=== PATIENT | male | born 1965 | race Caucasian/White ===

== ENCOUNTER 2017-12-31 04:46 | Inpatient (IN) | payer SELFPAY ==
[~2017-12-31] VITALS: Ht 175.3 cm; Wt 124.7 kg
[2017-12-31] VITALS (7 sets, daily range): BP systolic 143–211; BP diastolic 88–106
--- NOTE | ~2017-12-31 | PROC ---
[facility] [address] [place] [address] PROCEDURE REPORT Name: ILENE HEADLEY Room: [address] IN M.R.#: [id number] Admission: 12/31/17 Attend Phys: Joceline Crocker MD Discharge: 01/03/18 Date of : 65 Report #: [id number] THIS REPORT FOR: //name// For GI report, please see the Provation report in Perceptive 7 content. By: 0858Medical Records Staff RILEY /FABIEN
[2017-12-31] MEDS ORDERED: SYNTHROID100 MC1 PO (05:00)
[2017-12-31 05:21] LABS: URINE BILIRUBIN NEGATIVE (Negative); URINE BLOOD NEGATIVE (Negative); URINE CLARITY SL CLOUDY; URINE COLOR YELLOW; URINE GLUCOSE-RANDOM NEGATIVE (Negative); URINE KETONES NEGATIVE (Negative); URINE LEUKOCYTES-REFLEX NEGATIVE (Negative); URINE NITRITE-REFLEX NEGATIVE (Negative); URINE PROTEIN NEGATIVE (Negative); URINE UROBILINOGEN 0.2 E.U./dl (0.2-1.0)
[2017-12-31 05:22] LABS: ABSOLUTE BASOPHILS 0.1 thou/uL (0.0-0.2); ABSOLUTE LYMPHOCYTES 1.2 thou/uL (0.8-5.3); ABSOLUTE MONOCYTES 0.6 thou/uL (0.0-1.2); ABSOLUTE NEUTROPHILS 6.5 thou/uL (1.6-8.1); BASOPHILS 0.7 %; EOSINOPHILS 0.5 %; HEMATOCRIT 45.2 % (42.0-52.0); HEMOGLOBIN 15.2 gm/dL (14.0-18.0); LYMPHOCYTES 14.7 %; MCH 28.9 pg (26.0-34.0); MCHC 33.7 g/dL (28.0-37.0); MCV 85.8 fL (80.0-100.0); MONOCYTES 7.3 %; MPV 6.9 fl. (7.2-11.1); NUCLEATED RBCS 0 /100WBC; PLATELET COUNT* 321 thou/uL (150-400); POLYS 76.8 %; RBC 5.27 mil/uL (4.50-6.00); WBC 8.4 thou/uL (4.0-11.0)
[2017-12-31 05:26] LABS: AMORPHOUS PHOSPHATES Moderate /LPF (None Seen); BACTERIA-REFLEX 1-9 Few /HPF (None Seen); CASTS None Seen /LPF (None Seen); SQUAMOUS 0-3 Few /LPF (0-3); URINE RBC 0-2 Rare /HPF (0-2); URINE WBC-REFLEX 0-5 Rare /HPF (0-5)
[2017-12-31 05:44] LABS: CALCIUM 9.5 mg/dL (8.5-10.1); POTASSIUM 3.8 mmol/L (3.5-5.1)
[2017-12-31 05:48] LABS: TOTAL BILIRUBIN 0.4 mg/dL (<0.1-1.0); TOTAL PROTEIN 8.2 g/dL (6.4-8.2)
[2018-01-01 04:47] LABS: HEMOGLOBIN 14.8 gm/dL (14.0-18.0); MCV 85.8 fL (80.0-100.0); MPV 7.1 fl. (7.2-11.1); NUCLEATED RBCS 0 /100WBC
[2018-01-01 04:49] LABS: ABSOLUTE BASOPHILS 0.1 thou/uL (0.0-0.2); ABSOLUTE EOSINOPHILS 0.1 thou/uL (0.0-0.7); ABSOLUTE LYMPHOCYTES 1.2 thou/uL (0.8-5.3); BASOPHILS 0.8 %; EOSINOPHILS 1.1 %; HEMATOCRIT 44.3 % (42.0-52.0); LYMPHOCYTES 11.3 %; MCH 28.7 pg (26.0-34.0); MCHC 33.5 g/dL (28.0-37.0); MONOCYTES 9.5 %; PLATELET COUNT* 273 thou/uL (150-400); POLYS 77.3 %; RBC 5.16 mil/uL (4.50-6.00); RDW-CV 13.7 % (10.5-14.5); WBC 10.3 thou/uL (4.0-11.0)
[2018-01-01 05:00] LABS: CALCIUM 8.2 mg/dL (8.5-10.1); CREATININE 0.9 mg/dL (0.6-1.3)
[2018-01-01 05:51] LABS: ALBUMIN 3.2 g/dL (3.4-5.0); DIRECT BILIRUBIN 0.2 mg/dL (<0.1-0.3); TOTAL PROTEIN 7.1 g/dL (6.4-8.2)
[2018-01-01 08:15] VITALS: BP 160/96
[2018-01-01 16:00] VITALS: BP 162/91
[2018-01-01] MEDS ORDERED: ZOFRAN ODT4 MG PO (16:23)
[2018-01-01] MEDS ORDERED: NORCO 5-325 TA1 EACH PO (16:24)
[2018-01-01 21:00] VITALS: BP 156/84
[2018-01-02 05:27] LABS: ABSOLUTE BASOPHILS 0.1 thou/uL (0.0-0.2); ABSOLUTE EOSINOPHILS 0.3 thou/uL (0.0-0.7); ABSOLUTE LYMPHOCYTES 1.6 thou/uL (0.8-5.3); ABSOLUTE MONOCYTES 1.2 thou/uL (0.0-1.2); ABSOLUTE NEUTROPHILS 7.2 thou/uL (1.6-8.1); BASOPHILS 0.8 %; EOSINOPHILS 3.2 %; HEMATOCRIT 42.3 % (42.0-52.0); LYMPHOCYTES 15.1 %; MCH 28.6 pg (26.0-34.0); MCHC 33.1 g/dL (28.0-37.0); MCV 86.2 fL (80.0-100.0); MONOCYTES 11.3 %; MPV 7.1 fl. (7.2-11.1); NUCLEATED RBCS 0 /100WBC; PLATELET COUNT* 263 thou/uL (150-400); POLYS 69.6 %; RBC 4.91 mil/uL (4.50-6.00); RDW-CV 13.9 % (10.5-14.5); WBC 10.3 thou/uL (4.0-11.0)
[2018-01-02 06:09] LABS: CALCIUM 7.9 mg/dL (8.5-10.1); CREATININE 0.9 mg/dL (0.6-1.3); POTASSIUM 3.5 mmol/L (3.5-5.1); TOTAL BILIRUBIN 0.8 mg/dL (<0.1-1.0); TOTAL PROTEIN 6.3 g/dL (6.4-8.2)
[2018-01-02 08:00] VITALS: BP 144/87
[2018-01-02 08:18] VITALS: BP 162/88
[2018-01-02 12:30] VITALS: BP 154/84
[2018-01-02 16:00] VITALS: BP 139/83
[2018-01-02 19:35] VITALS: BP 131/80
[2018-01-03 00:21] VITALS: BP 115/78
[2018-01-03 04:25] VITALS: BP 133/74
[2018-01-03 08:15] VITALS: BP 126/72
[2018-01-03 09:24] VITALS: BP 126/72
[2018-01-03] MEDS ORDERED: MIRALAX17 GM PO (09:27)
[2018-01-03] MEDS ORDERED: TRAMADOL 50 MG50 MG PO ×2 (09:35→09:38)
--- NOTE | 2018-01-07 16:49 | CON ---
[address] [address] CONSULTATION Name: ILENE HEADLEY Room: [address] IN M.R.#: [id number] Admission: 12/31/17 Attend Phys: Joceline Crocker MD Discharge: 01/03/18 Date of : 65 Report #: [id number] THIS REPORT FOR: //name// CC: Melody Crocker DATE OF SERVICE: 12/31/2017 ADDENDUM The patient with acute abdominal pain, which started at late last night. The patient is known to have cholelithiasis. CT of the abdomen and pelvis has revealed possible 4 mm stone in the neck of the gallbladder. Liver functions are completely within normal limit. The patient reports that he had GI cocktail in the ER, which improved his pain somewhat. The patient now is scheduled for MRCP. I do not see any indication for ERCP at this time. Since the patient's pain is mainly epigastric, we may consider upper endoscopy. <ELECTRONICALLY SIGNED> By: Jeanine Agosto MD 01/07/18 1649 [id number] [id number] Agosto MD /nt
--- NOTE | 2018-01-07 16:49 | CON ---
[address] [address] CONSULTATION Name: ILENE HEADLEY Room: [address] IN M.R.#: [id number] Admission: 12/31/17 Attend Phys: Joceline Crocker MD Discharge: 01/03/18 Date of : 65 Report #: [id number] THIS REPORT FOR: //name// CC: Melody Horne RN TESTING Joceline Crocker DICTATED BY: Angelina Monroy [facility] DATE OF SERVICE: 12/31/2017 PRIMARY CARE PHYSICIAN: Melody Horne Please note at the time of this dictation, the patient was seen and physically examined by myself. REASON FOR CONSULTATION: Abdominal pain, possible biliary ductal stone. HISTORY OF PRESENT ILLNESS: This 52-year-old male presented to the Emergency Room after being awakened last night around 10:00, was starting to have some abdominal pain. He had eaten dinner, which was a teriyaki chicken dinner earlier in the evening. He took some Tums and Mylanta without any relief and then as the night progressed, his pain increased in intensity and he began having nausea and vomiting. He denied any bright red blood or any melena with that. He does take some ibuprofen 800 mg 1 tablet a couple of times a week for generalized aches and pains. Otherwise he has never had any upper or lower scopes done at this time. He has never had a colonoscopy since turning 50. states that he did have some issues with constipation in the past. He started taking aloe supplement and his bowels are moving very regularly now, up to 4 times a day. He has not noted any bright red blood or any melena in his stool as well. ALLERGIES: No known drug allergies. MEDICATIONS: From home are levothyroxine. PAST MEDICAL HISTORY: Hypothyroidism. PAST SURGICAL HISTORY: Negative. FAMILY HISTORY: Negative for any GI or female cancers. SOCIAL HISTORY: Denies any alcohol or tobacco use, but appears he has had some marijuana use. REVIEW OF SYSTEMS: Twelve-point review [place] [address] CONSULTATION Name: ILENE HEADLEY Room: [address]#: [id number] Admission: 12/31/17 Attend Phys: Joceline Crocker MD Discharge: 01/03/18 Date of : 65 Report #: [id number] except what is mentioned in the HPI. PHYSICAL EXAMINATION: VITAL SIGNS: Temperature 36.6, pulse 88, respirations 20, blood pressure 143/88. HEART: Regular rate and rhythm. LUNGS: Clear. ABDOMEN: Soft, positive bowel sounds in all 4 quadrants with epigastric tenderness noted to palpation. LABORATORY DATA: Hemoglobin 15.2, hematocrit 45.2, white count is 8.4, platelets 321. Sodium 140, potassium 3.8, chloride 102, CO2 33, BUN is 13, creatinine is 1, GFR 78, glucose is 130. LFTs are completely normal. Total bilirubin 0.4, alkaline phosphatase 102, ALT 34, AST is 18. Lipase is normal at 85. CT of the abdomen and pelvis shows no biliary ductal dilatation; however, tiny calculus noted in the neck of the gallbladder. Ultrasound shows the ____ to be at 6.44 mm and a fatty liver. IMPRESSION: 1. Abdominal pain continues, nausea and vomiting has improved. 2. Cholelithiasis noted. 3. Possible choledocholithiasis. PLAN: 1. MRCP now. 2. Obtain surgical consultation for standby. 3. Further recommendations to be made once the MRCP has been back. 4. Discussed with the patient need for outpatient colonoscopy for screening purposes. Thank you for allowing us to participate in this patient's care. Please do not hesitate to call with any questions in regard to this consult. <ELECTRONICALLY SIGNED> By: Jeanine Agosto MD 01/07/18 1649 [id number] [id number] Agosto MD /nt
--- NOTE | 2018-01-08 07:10 | PATH ---
[facility] [address] [place] [address] PATHOLOGY RPT PROCEDURE Name: ILENE HEADLEY Room: [address] IN M.R.#: [id number] Admission: 12/31/17 Date of : 65 Discharge: 01/03/18 Report #: [id number] Path Case #: [id number] [facility] Accession Number: [id number] . 01 Material submitted: . ANTRAL ULCERS . 01 Clinical history: . None provided . 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 (ANDIE/db; 01/03/18) LBQ/01/03/2018 . 02 Comment: Special stain: H. pylori immuno . 02 Electronically signed: . Alessandro Guy MD, Pathologist NPI- [id number] . 01 Gross description: . Received in formalin labeled "Jeri, Ilene, antral ulcers," are 3 segments of boateng soft tissue measuring 0.9 x 0.8 x 0.3 cm in aggregate dimensions and ranging from 0.4 to 0.5 cm in maximum dimension. The specimen is submitted entirely in cassette A1. (TSD; 12/31/2017) TOB/TOB . 02 Pathologist provided ICD-10: K29.50, K25.9 . 02 CPT . 323909, U48411 Performed at: [address], [place] [id number] MD Rogelio Trejo MD Phone: [phone] Performed at: [address] [facility] [address], [place], [place] [id number] MD Alessandro Guy MD Phone: [phone]
--- NOTE | 2018-01-13 15:43 | OP ---
[facility] [address] [place] [address] OPERATIVE REPORT Name: ILENE HEADLEY Room: [address] IN M.R.#: [id number] Admission: 12/31/17 Attend Phys: Joceline Crocker MD Discharge: 01/03/18 Date of : 65 Report #: [id number] THIS REPORT FOR: //name// CC: Melody Horne WAREHOUSE TRAINER Joceline Crocker DATE OF SERVICE: 01/02/2018 PREOPERATIVE DIAGNOSIS: Acute cholecystitis. POSTOPERATIVE DIAGNOSIS: Acute cholecystitis. PROCEDURE: Laparoscopic cholecystectomy. SURGEON: Shaista Mckeon M.D. SUPERVISOR [employer] SANITATION: 1. Hi Prince DO. 2. Flora Echeverria DO. ESTIMATED BLOOD LOSS: 40 mL. COMPLICATIONS: None. FINDINGS: Severe gangrenous cholecystitis with complete obstruction of cystic duct taken down with top down approach. DESCRIPTION OF PROCEDURE: Full informed consent obtained preoperatively. Full discussion of risks, benefits, alternatives, questions answered. The patient understood risks of bleeding, infection, reoperation, injury to surrounding structures, injury to common bile duct or bowel, need for partial cholecystectomy or prolonged tube placement, conversion to open and catastrophic complications up to including , chronic pain, recurrent symptoms. The patient understood and wished to proceed. He also understood option of nonoperative management; however, he was unable to tolerate diet within the hospital. He was taken to the operating room, we prepped and draped in standard sterile fashion, began with a timeout with all in agreement. OG was in place. We began with a 5-mm incision in left upper quadrant. Optiview used in left upper quadrant, entered safely in the abdomen. The patient placed additional trocars including two 12s supraumbilical and subxiphoid, two 5s in right upper quadrant. Began taking down omentum away from the liver bed where it was firmly adhesed. Gallbladder was noted to be severely inflamed near gangrenous. I was unable to grasp with the head elevated and using an aspiration needle to drain fluid to decompress it. It was grasped and retracted. I began with some blunt dissection around the area of the triangle of [place]. [place], [place] [address] OPERATIVE REPORT Name: ILENE HEADLEY Room: [address] IN [facility]#: [id number] Admission: 12/31/17 Attend Phys: Joceline Crocker MD Discharge: 01/03/18 Date of : 65 Report #: [id number] difficulty visualizing the anatomy, I moved to a top down approach the posterior rim of the gallbladder away from the liver bed using cautery. When I came down to an area where I had enough adequate separation from the liver bed, I opened in the gallbladder. Suction was used to decompress it to remove stones and fluid. I was able to visualize internally here and from there, I was working towards the base. Additional portion of the gallbladder was removed. This actually helped me visualize the cystic duct well enough to dissect it free. The cystic duct and cystic artery were completely dissected free. Cystic artery had 2 clips placed proximally, 1 distally and it was cut. Next, I came down to the base where the cystic duct entered the gallbladder. At this junction, a purple staple load was fired across it with complete transection and the entire gallbladder lumen above this portion of staple line. Three portions of gallbladder were placed in the EndoCatch bag and sent to pathology with the bile. I made sure it was hemostatic. Next, I placed a 19-Kiswahili drain in the right upper quadrant. Top down method helped in partial and beginning of partial removal helped confirm critical view of safety before stapling across the junction. Next, I used 0 Vicryl and PMI to close the 12 and 11-mm incision. Drain sutured in place with 2-0 nylon, 4-0 Monocryl to close the skin. Sponge, needle, instrument counts correct at the end of the case. The patient tolerated well. <ELECTRONICALLY SIGNED> By: hSaista Mckeon MD 01/13/18 1543 [id number] [id number] Mckeon MD /nt
--- NOTE | 2018-01-26 09:14 | PATH ---
[facility] [address] [place] [address] PATHOLOGY RPT PROCEDURE Name: ILENE HEADLEY Room: [address] IN M.R.#: [id number] Admission: 12/31/17 Date of : 65 Discharge: 01/03/18 Report #: [id number] Path Case #: [id number] [facility] Accession Number: [id number] . 01 Material submitted: . GALLBLADDER . 01 Clinical history: . Abd pain, cholecystitis, cholelithiasis . 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 See comment. LBQ/01/04/2018 . 02 Comment: No gallstones were identified in the submitted specimen. (ANDIE/db; 01/04/18) . 02 Electronically signed: . Alessandro Guy MD, Pathologist NPI- [id number] . 01 Gross description: . Received in formalin labeled "Ilene Headley, gallbladder," are three irregular segments of boateng-brown soft tissue ranging from 3.8 x 2.2 x 2.2 cm to 4.8 x 3.4 x 2.3 cm in greatest dimensions. All three segments display a smooth to shaggy, light yellow to dark boateng-brown serosal surface. The infundibulum cannot be identified grossly. All three segments display a shaggy, dark brown mucosal surface measuring up to 0.2 cm in thickness. Calculi are not identified within the specimen or specimen container. Mobile Product Manager sections from all three segments are submitted in cassettes A1 through A3. (DAC; 01/03/2018) XDC/XDC . 02 Pathologist provided ICD-10: K81.2, K82.4 . 02 CPT . 338700 Performed at: [address] [id number] MD Rogelio Trejo MD Phone: [phone] Performed at: 02 [place] [address] PATHOLOGY RPT PROCEDURE Name: ILENE HEADLEY Room: [address] IN M.R.#: [id number] Admission: 12/31/17 Date of : 65 Discharge: 01/03/18 Report #: [id number] Path Case #: [id number] [address] [place], [place] [id number] MD Alessandro Guy MD Phone: [phone]
== END 2018-01-03 11:04 | disposition home or self-care (01) | DRG 418 ==
LOC: M.ERS 04:46 → M.TBA-ER 08:07 → M.3W 08:07
PROVIDERS: Emergency Medicine; Internal Medicine; Surgery; ADMIT Internal Medicine
PROC: 0DB68ZX Excision of Stomach, Via Natural or Artificial Opening Endoscopic, Diagnostic (ICD-10-PCS; principal; 2017-12-31)
PROC: 0FT44ZZ Resection of Gallbladder, Percutaneous Endoscopic Approach (ICD-10-PCS; 2018-01-02)
DX: K80.12 Calculus of gallbladder with acute and chronic cholecystitis without obstruction (principal); Z68.41 Body mass index [BMI] 40.0-44.9, adult; E66.01 Morbid (severe) obesity due to excess calories; G89.29 Other chronic pain; E03.9 Hypothyroidism, unspecified; K21.0 Gastro-esophageal reflux disease with esophagitis; K44.9 Diaphragmatic hernia without obstruction or gangrene; F17.290 Nicotine dependence, other tobacco product, uncomplicated; Z79.2 Long term (current) use of antibiotics; Z79.899 Other long term (current) drug therapy